=== PATIENT | female | born 2005 | race African-American/Black ===

== ENCOUNTER 2024-08-11 16:26 | Emergency (ER) | payer MEDICAID ==
[~2024-08-11] VITALS: Ht 170.2 cm; Wt 85.0 kg
[2024-08-11 16:35] VITALS: O2SAT 99
[2024-08-11 21:32] VITALS: BP 125/73; PULSE 92; RESP 20; TEMP 36.9; O2SAT 99
== END 2024-08-11 21:32 | disposition home or self-care (01) ==
LOC: ER 16:26
DX: M25.551 Pain in right hip (principal); M25.561 Pain in right knee
CPT/HCPCS: 29505; 99283